=== PATIENT | female | born 1980 | race Caucasian/White ===

== ENCOUNTER 2017-10-19 11:09 | Emergency (ER) | payer MEDICARE ==
[~2017-10-19] VITALS: Ht 162.6 cm; Wt 74.7 kg
[2017-10-19 11:11] VITALS: BP 121/71
== END 2017-10-19 12:23 | disposition left against medical advice (07) ==
LOC: ED 12:17
DX: Z53.21 Procedure and treatment not carried out due to patient leaving prior to being seen by health care provider (principal)

== ENCOUNTER 2017-11-21 21:47 | Emergency (ER) | payer MEDICARE ==
[~2017-11-21] VITALS: Ht 162.6 cm; Wt 72.7 kg
[2017-11-21 21:49] VITALS: BP 122/84
[2017-11-21 22:56] LABS: BASOPHILS # (AUTO) 0.06 x10^3/uL (0-0.1); BASOPHILS % (AUTO) 1 % (0-1); EOSINOPHILS % (AUTO) 1 % (1-7); LYMPHOCYTES # (AUTO) 2.92 x10^3/uL (1-3.4); LYMPHOCYTES % (AUTO) 24 % (22-44); MD NO; MEAN CORPUSCULAR HEMOGLOBIN 31.5 pg (27.0-34.8); MEAN CORPUSCULAR HGB CONC 33.8 g/dL (32.4-35.8); MEAN CORPUSCULAR VOLUME 93.3 fL (80-100); MEAN PLATELET VOLUME 7.8 fL (7.4-10.4); MONOCYTES # (AUTO) 0.72 x10^3/uL (0.2-0.8); MONOCYTES % (AUTO) 6 % (2-9); NEUTROPHILS # (AUTO) 8.21 x10^3/uL (1.8-6.8); NEUTROPHILS % (AUTO) 68 % (42-75); PLATELET COUNT 360 x10^3/uL (130-400); RED BLOOD COUNT 4.74 x10^6/uL (3.82-5.3); RED CELL DISTRIBUTION WIDTH 12.8 % (9.6-15.2)
[2017-11-21 22:57] LABS: HCG UR SG 1.009 (1.003-1.030); MICROSCOPIC NOT IND
[2017-11-21 23:01] LABS: CULTURE INDICATED? NO
[2017-11-21 23:03] LABS: ALANINE AMINOTRANSFERASE 17 U/L (12-78); ALBUMIN 3.8 g/dL (3.4-5.0); ANION GAP 8 mmol/L (5-15); CALCIUM 8.9 mg/dL (8.5-10.1); CHLORIDE 106 mmol/L (98-107)
[2017-11-21 23:06] LABS: ALKALINE PHOSPHATASE 53 U/L (45-117); BILIRUBIN,TOTAL 0.3 mg/dL (0.2-1.0); CREATININE 0.85 mg/dL (0.55-1.02); TOTAL PROTEIN 7.6 g/dL (6.4-8.2)
[2017-11-21] MEDS ORDERED: OMNIPAQUE 350 MG/ML, 100ML BOTTLE ONE (23:37)
== END 2017-11-22 00:35 | disposition home or self-care (01) ==
LOC: ED 23:38
DX: S39.011A Strain of muscle, fascia and tendon of abdomen, initial encounter (principal); K21.9 Gastro-esophageal reflux disease without esophagitis; X58.XXXA Exposure to other specified factors, initial encounter; Y93.89 Activity, other specified; Y92.89 Other specified places as the place of occurrence of the external cause; Y99.8 Other external cause status
CPT/HCPCS: 36415; 74177; 80053; 81003; 81025; 83690; 85025; 99285; Q9967

== ENCOUNTER 2017-11-27 13:16 | Emergency (ER) | payer MEDICARE | END 2017-11-27 13:25 | disposition left against medical advice (07) | LOC: ED 13:19 | DX: F41.9 Anxiety disorder, unspecified (principal); Z53.21 Procedure and treatment not carried out due to patient leaving prior to being seen by health care provider ==